=== PATIENT | male | born 1965 | race Caucasian/White ===

== ENCOUNTER 2021-11-18 07:30 | Emergency (ER) | payer MEDICAID ==
[~2021-11-18] VITALS: Ht 170.2 cm; Wt 114.9 kg
[2021-11-18 08:13] LABS: CLARITY,URINE CLEAR (Clear); COLOR,URINE YELLOW (Yellow); GLUCOSE, URINE NEGATIVE (Neg); KETONES,URINE NEGATIVE (Neg); LEUKOCYTE ESTERASE ,URINE NEGATIVE (Neg); NITRITES, URINE NEGATIVE (Neg); OCCULT BLOOD,URINE NEGATIVE (Neg); PROTEIN,URINE NEGATIVE (Neg); UROBILINOGEN,URINE 0.2 E.U/dL (0.2-1.0)
[2021-11-18 08:13] LABS: BASOPHILS % (AUTO) 0.4 % (0-1); EOSINOPHILS # (AUTO) 0.2 X10'3 (0-0.9); EOSINOPHILS % (AUTO) 3.3 % (0-6); HEMATOCRIT 41.1 % (42.0-52.0); HEMOGLOBIN 13.8 g/dl (14.0-17.9); LYMPHOCYTES # (AUTO) 1.5 X10'3 (1.1-4.8); LYMPHOCYTES % (AUTO) 29.1 % (21-51); MEAN CORPUSCULAR HEMOGLOBIN 30.5 PG (27.0-31.0); MEAN CORPUSCULAR HGB CONC 33.5 g/dL (33.0-36.5); MEAN CORPUSCULAR VOLUME 90.9 FL (78-98); MEAN PLATELET VOLUME 8.6 FL (7.4-10.4); MONOCYTES # (AUTO) 0.6 X10'3 (0-0.9); MONOCYTES % (AUTO) 11.1 % (2-12); NEUTROPHILS # (AUTO) 2.9 X10'3 (1.8-7.7); NEUTROPHILS % (AUTO) 56.1 % (42-75); PLATELET COUNT 207 X10'3 (140-440); RED BLOOD COUNT 4.52 X10'6 (4.70-6.10); RED CELL DISTRIBUTION WIDTH 13.6 % (11.5-14.5); WHITE BLOOD COUNT 5.2 X10'3 (4.5-11.0)
[2021-11-18 08:22] LABS: ALANINE AMINOTRANSFERASE 55 U/L (12-78); ALBUMIN 3.6 G/DL (3.4-5.0); ALKALINE PHOSPHATASE 57 IU/L (46-116); ASPARTATE AMINO TRANSFERASE 22 U/L (10-37); BLOOD UREA NITROGEN 15 MG/DL (7-18); BUN/CREATININE RATIO 16.9 (5.4-32.0); CALCIUM 8.4 MG/DL (8.5-10.1); CREATININE 0.89 MG/DL (0.60-1.10); GLUCOSE 142 MG/DL (70-104); LIPASE 94 U/L (73-393); TOTAL PROTEIN 7.1 G/DL (6.4-8.2); eGFR 88 ML/MIN
[2021-11-18 08:23] LABS: ANION GAP 8 (8-16); BILIRUBIN,TOTAL 0.5 MG/DL (0.1-1.0); CHLORIDE 107 MMOL/L (99-107); POTASSIUM 3.9 MMOL/L (3.5-5.1); SODIUM 142 MMOL/L (135-145); TOTAL CARBON DIOXIDE 26.7 MMOL/L (24-32)
[2021-11-18 08:30] LABS: UA COLLECTION TYPE CLN CATCH MIDSTREAM
[2021-11-18] MEDS ORDERED: ibuprofen tablet 400 MG TABLET PO ONE (09:45)
[2021-11-18] MEDS ORDERED: normal saline 1000ml 1,000 ML IV ONE (09:45)
[2021-11-18] MEDS ORDERED: ibuprofen 200mg tablet PO ONE (09:50)
[2021-11-18] MEDS ORDERED: iohexol 300mg/ml 100ml inj. ONE (10:34)
[2021-11-18 13:10] VITALS: BP 117/45
== END 2021-11-18 13:16 | disposition home or self-care (01) ==
LOC: ER 07:31
DX: M54.50 Low back pain, unspecified (principal); R10.9 Unspecified abdominal pain; R53.83 Other fatigue; Z86.19 Personal history of other infectious and parasitic diseases
CPT/HCPCS: 36415; 74177; 80053; 81003; 83690; 85025; 96360; 99285; J7030; Q9967

== ENCOUNTER 2024-02-11 18:22 | Emergency (ER) | payer MEDICAID, OTHER ==
[~2024-02-11] VITALS: Ht 172.7 cm; Wt 113.6 kg
[2024-02-11 18:47] VITALS: TEMP 98
[2024-02-11] MEDS: ipratropium/albuterol 3ml nebule NEB ONE (21:47)
[2024-02-11 21:48] VITALS: PULSE 65; RESP 18; O2SAT 98
[2024-02-11 21:55] VITALS: PULSE 67; RESP 16; O2SAT 98
[2024-02-11 22:08] VITALS: BP 134/80; PULSE 88; RESP 20; O2SAT 98
[2024-02-11] MEDS ORDERED: ALBU8HFA PO (22:11)
== END 2024-02-11 22:33 | disposition home or self-care (01) ==
LOC: ER 18:23
DX: J20.9 Acute bronchitis, unspecified (principal); Z79.899 Other long term (current) drug therapy
CPT/HCPCS: 71046; 94640; 99285

== ENCOUNTER 2025-03-16 08:23 | Emergency (ER) | payer MEDICAID ==
[~2025-03-16] VITALS: Ht 170.2 cm; Wt 113.6 kg
[2025-03-16 08:27] VITALS: BP 121/84; PULSE 67; RESP 16; TEMP 97.5; O2SAT 99
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
== END 2025-03-16 09:40 | disposition home or self-care (01) ==
LOC: ER 08:23
DX: M79.644 Pain in right finger(s) (principal); M79.89 Other specified soft tissue disorders
CPT/HCPCS: 99282

== ENCOUNTER 2025-05-04 10:24 | Outpatient (CLI) | payer BC ==
[2025-05-04 10:57] LABS: MEAN PLATELET VOLUME 8.6 FL (7.4-10.4); RED CELL DISTRIBUTION WIDTH 14.0 % (11.5-14.5)
[2025-05-04 11:13] LABS: CHOL/HDL RATIO 3.1 (0.00-4.99); CREATININE 0.92 MG/DL (0.60-1.10); LDL CHOLESTEROL 104 MG/DL (50-100); TOTAL CARBON DIOXIDE 31.1 MMOL/L (24-32); eGFR 84 ML/MIN
== END 2025-05-04 23:59 | disposition home or self-care (01) ==
LOC: LAB 10:24
DX: Z13.220 Encounter for screening for lipoid disorders (principal); Z13.1 Encounter for screening for diabetes mellitus; Z76.89 Persons encountering health services in other specified circumstances
CPT/HCPCS: 36415; 80053; 80061; 83036; 85025

== ENCOUNTER 2025-05-10 08:16 | Outpatient (CLI) | payer BC, MEDICAID ==
--- NOTE | 2025-05-10 11:26 | RADIOLOGY REPORT ---
CLINICAL INDICATION: PAIN IN RIGHT FINGER(S) COMPARISON: MR MRI LOWER EXTREMITY RIGHT on DOS: 05/10/25 TECHNIQUE: Multiplanar, multisequence MRI of the right hand was performed without intravenous contrast. Contrast: None. INTERPRETATION: Bones: No evidence of acute fracture. There is no marrow replacing lesion. Joints: No evidence of joint effusion. No periarticular erosion. Soft tissues: No evidence of collateral ligament tear. Visualized flexor and extensor tendons are intact. Regional muscles are normal in signal characteristics and bulk. No fluid collection or soft tissue mass. IMPRESSION: 1. Normal MRI of the right hand without intravenous contrast.
--- NOTE | 2025-05-11 16:08 | RADIOLOGY REPORT ---
CLINICAL INFORMATION: Right wrist pain. COMPARISON: No prior imaging of the right wrist was available for comparison at the time of dictation. TECHNIQUE: Multisequence multiplanar MRI images of the right wrist were obtained without contrast. FINDINGS: TFCC: Edema and indistinctness of the fibers of the TFCC at its ulnar styloid and foveal attachments consistent with partial tears, of uncertain chronicity. There is thinning of the articular disc of the TFCC without visualized tear or perforation. ULNAR VARIANCE: Neutral. DRUJ: No dislocation or subluxation. Small to moderate amount of fluid in the DRUJ. LIGAMENTS: Scapholunate and lunotriquetral ligaments appear intact. No findings to suggest extrinsic ligament injury. FLEXOR TENDONS: Mild tenosynovitis of the flexor carpi radialis tendon at the level of the proximal carpal row and more distally near its insertion. There is also mild to moderate tendinosis of the flexor carpi radialis tendon as it courses adjacent to the trapezium and more distally near its insertion. Can not exclude partial-thickness interstitial tear just proximal to its insertion. CARPAL TUNNEL: Unremarkable. Normal appearance of the median nerve and flexor retinaculum. EXTENSOR TENDONS: Unremarkable signal intensity and course. No significant tendinosis, tenosynovitis, or tear. BONES/JOINTS: No evidence of acute fracture. There is mild Cystic change at the radial aspect of the lunate near its articulation with the proximal pole of the scaphoid. Minimal subchondral edema in the adjacent portions of the scaphoid, likely due to arthritic changes. Mild arthritic changes at the STT joint. OTHER: Motion limited study. IMPRESSION: 1. Motion limited study. 2. Partial tears involving the ulnar styloid and foveal attachments of the TFCC, of uncertain chronicity. 3. Tendinosis and tenosynovitis of the flexor carpi radialis tendon. Possible ill-defined interstitial tear just proximal to its insertion. Correlate with clinical findings. 4. Arthritic changes as described above. 5. Nonspecific small to moderate amount of fluid in the DRUJ.
== END 2025-05-10 23:59 | disposition home or self-care (01) ==
LOC: MRI02 08:16
PROVIDERS: ATTEND Student in an Organized Health Care Education/Training Program
DX: S66.811D Strain of other specified muscles, fascia and tendons at wrist and hand level, right hand, subsequent encounter (principal); S61.511A Laceration without foreign body of right wrist, initial encounter; M25.531 Pain in right wrist; M65.841 Other synovitis and tenosynovitis, right hand; M79.644 Pain in right finger(s); X58.XXXA Exposure to other specified factors, initial encounter; Y93.89 Activity, other specified; Y92.89 Other specified places as the place of occurrence of the external cause; Y99.8 Other external cause status
CPT/HCPCS: 73218; 73221